=== PATIENT | female | born 1995 | race Caucasian/White ===

== ENCOUNTER 2018-11-22 11:58 | Emergency (ER) | payer OTHER ==
[~2018-11-22] VITALS: Ht 175.3 cm; Wt 76.4 kg
[2018-11-22] MEDS ORDERED: iohexol 350MG/ML 100ml bottle IV ONE (12:47)
[2018-11-22 12:56] LABS: BASOPHILS # (AUTO) 0.1 X10'3 (0-0.2); BASOPHILS % (AUTO) 0.9 % (0-1); EOSINOPHILS % (AUTO) 0.5 % (0-6); HEMATOCRIT 40.7 % (35.0-45.0); HEMOGLOBIN 13.6 g/dl (12.0-16.0); LYMPHOCYTES # (AUTO) 2.1 X10'3 (1.1-4.8); LYMPHOCYTES % (AUTO) 27.6 % (21-51); MEAN CORPUSCULAR HEMOGLOBIN 30.9 PG (27.0-31.0); MEAN CORPUSCULAR HGB CONC 33.5 g/dL (33.0-36.5); MEAN CORPUSCULAR VOLUME 92.1 FL (78-98); MEAN PLATELET VOLUME 8.4 FL (7.4-10.4); MONOCYTES # (AUTO) 0.5 X10'3 (0-0.9); NEUTROPHILS # (AUTO) 4.8 X10'3 (1.8-7.7); PLATELET COUNT 301 X10'3 (140-440); RED BLOOD COUNT 4.42 X10'6 (4.20-5.60); WHITE BLOOD COUNT 7.5 X10'3 (4.5-11.0)
[2018-11-22] MEDS ORDERED: methylPREDNISolone sod succ 125mg/2ml vial IV ONE (13:10)
[2018-11-22 13:12] LABS: ALANINE AMINOTRANSFERASE 24 U/L (12-78); ALBUMIN 4.3 G/DL (3.4-5.0); ALBUMIN/GLOBULIN RATIO 1.2 (1.1-1.5); ALKALINE PHOSPHATASE 82 IU/L (46-116); ANION GAP 11 (8-16); ASPARTATE AMINO TRANSFERASE 21 U/L (10-37); BILIRUBIN,TOTAL 0.3 MG/DL (0.1-1.0); BLOOD UREA NITROGEN 10 MG/DL (7-18); BUN/CREATININE RATIO 13.3 (6.6-38.0); CALCIUM 10.1 MG/DL (8.5-10.1); CHLORIDE 104 MMOL/L (99-107); CREATININE 0.75 MG/DL (0.40-0.90); GLUCOSE 88 MG/DL (70-104); POTASSIUM 3.3 MMOL/L (3.5-5.1); SODIUM 141 MMOL/L (135-145); TOTAL CARBON DIOXIDE 25.6 MMOL/L (24-32); TOTAL PROTEIN 7.9 G/DL (6.4-8.2); eGFR > 90 ML/MIN
[2018-11-22 13:19] LABS: MAGNESIUM 1.9 MG/DL (1.5-2.4)
[2018-11-22] MEDS ORDERED: PRED20TA PO (14:10)
[2018-11-22 14:12] VITALS: BP 139/76
--- NOTE | 2018-11-23 10:09 | NUR ---
[facility] NOTIFIED OF PT'S RECEINT HX IF USING A JEWEL VAP PEN FOR SMOKING SESATION; PT'S INFORMATION, VAPE PEN FLAVORS USED AND SERIAL # PROVIDED TO PUBLIC HEALTH.
== END 2018-11-22 14:24 | disposition home or self-care (01) ==
LOC: ER 11:59
DX: R06.02 Shortness of breath (principal); F17.200 Nicotine dependence, unspecified, uncomplicated; Z79.899 Other long term (current) drug therapy
CPT/HCPCS: 36415; 71275; 80053; 83735; 83880; 84484; 85025; 93005; 96374; 99284; J2930; Q9967

== ENCOUNTER 2019-09-11 18:03 | Emergency (ER) | payer OTHER ==
[~2019-09-11] VITALS: Ht 175.3 cm; Wt 72.7 kg
[2019-09-11 18:13] VITALS: BP 145/92
[2019-09-11] MEDS ORDERED: AMOX-422 PO (19:14)
== END 2019-09-11 19:24 | disposition home or self-care (01) ==
LOC: ER 18:04
DX: M79.641 Pain in right hand (principal); M79.642 Pain in left hand; Z79.899 Other long term (current) drug therapy; W55.01XA Bitten by cat, initial encounter; Y93.89 Activity, other specified; Y92.89 Other specified places as the place of occurrence of the external cause; Y99.8 Other external cause status
CPT/HCPCS: 99283

== ENCOUNTER 2022-05-27 09:27 | Emergency (ER) | payer BC, OTHER ==
[~2022-05-27] VITALS: Ht 175.3 cm; Wt 72.0 kg
[2022-05-27 09:30] VITALS: BP 152/88
== END 2022-05-27 10:30 | disposition home or self-care (01) ==
LOC: ER 09:27
DX: S06.0X0A Concussion without loss of consciousness, initial encounter (principal); S10.91XA Abrasion of unspecified part of neck, initial encounter; W18.39XA Other fall on same level, initial encounter; Y93.89 Activity, other specified; Y92.89 Other specified places as the place of occurrence of the external cause; Y99.8 Other external cause status
CPT/HCPCS: 99281

== ENCOUNTER 2023-08-16 09:42 | Emergency (ER) | payer BC ==
[~2023-08-16] VITALS: Ht 175.3 cm; Wt 82.3 kg
[2023-08-16 10:26] LABS: BASOPHILS # (AUTO) 0.1 X10'3 (0-0.2); BASOPHILS % (AUTO) 0.9 % (0-1); EOSINOPHILS % (AUTO) 0.8 % (0-6); HEMOGLOBIN 13.3 g/dl (12.0-16.0); LYMPHOCYTES # (AUTO) 0.9 X10'3 (1.1-4.8); LYMPHOCYTES % (AUTO) 13.8 % (21-51); MEAN CORPUSCULAR HGB CONC 32.4 g/dL (33.0-36.5); MEAN CORPUSCULAR VOLUME 92.6 FL (78-98); MEAN PLATELET VOLUME 8.7 FL (7.4-10.4); MONOCYTES # (AUTO) 0.3 X10'3 (0-0.9); MONOCYTES % (AUTO) 5.1 % (2-12); NEUTROPHILS # (AUTO) 4.9 X10'3 (1.8-7.7); NEUTROPHILS % (AUTO) 79.4 % (42-75); PLATELET COUNT 268 X10'3 (140-440); RED BLOOD COUNT 4.43 X10'6 (4.20-5.60); WHITE BLOOD COUNT 6.2 X10'3 (4.5-11.0)
[2023-08-16 10:32] LABS: URINE HCG NEGATIVE (NEG)
[2023-08-16 10:34] LABS: BILIRUBIN,URINE NEGATIVE (Neg); CLARITY,URINE CLEAR (Clear); COLOR,URINE YELLOW (Yellow); GLUCOSE, URINE NEGATIVE (Neg); KETONES,URINE NEGATIVE (Neg); LEUKOCYTE ESTERASE ,URINE NEGATIVE (Neg); NITRITES, URINE NEGATIVE (Neg); OCCULT BLOOD,URINE NEGATIVE (Neg); PH,URINE 6.5 (4.8-8.0); PROTEIN,URINE NEGATIVE (Neg); UROBILINOGEN,URINE 0.2 E.U/dL (0.2-1.0)
[2023-08-16 10:45] LABS: ALANINE AMINOTRANSFERASE 27 U/L (12-78); ALBUMIN 4.3 G/DL (3.4-5.0); ALBUMIN/GLOBULIN RATIO 1.2 (1.1-1.5); ALKALINE PHOSPHATASE 66 IU/L (46-116); ANION GAP 10 (8-16); ASPARTATE AMINO TRANSFERASE 14 U/L (10-37); BILIRUBIN,TOTAL 0.4 MG/DL (0.1-1.0); BLOOD UREA NITROGEN 18 MG/DL (7-18); BUN/CREATININE RATIO 26.9 (10.0-20.0); CHLORIDE 102 MMOL/L (99-107); CREATININE 0.67 MG/DL (0.40-0.90); GLUCOSE 92 MG/DL (70-104); LIPASE 25 U/L (16-77); POTASSIUM 3.7 MMOL/L (3.5-5.1); SODIUM 137 MMOL/L (135-145); TOTAL PROTEIN 7.8 G/DL (6.4-8.2); eCRCL 133 ML/MIN; eGFR > 90 ML/MIN
[2023-08-16 10:48] LABS: UA COLLECTION TYPE CLN CATCH MIDSTREAM
[2023-08-16 10:50] LABS: CALCIUM 9.1 MG/DL (8.5-10.1)
[2023-08-16] MEDS ORDERED: METR-159 PO (11:23)
[2023-08-16 11:41] VITALS: BP 135/88; PULSE 82; RESP 18; TEMP 98.4; O2SAT 100
== END 2023-08-16 11:44 | disposition home or self-care (01) ==
LOC: ER 09:43
DX: R19.7 Diarrhea, unspecified (principal); K92.1 Melena; R11.0 Nausea; R10.84 Generalized abdominal pain; Z79.2 Long term (current) use of antibiotics
CPT/HCPCS: 36415; 80053; 81003; 81025; 83690; 85025; 99283